=== PATIENT | male | born 1955 | race Caucasian/White ===

== ENCOUNTER → 2024-09-18 07:21 | Outpatient (REF) | payer MEDICARE, OTHER, SELFPAY ==
[2024-09-18 09:31] LABS: Hematocrit 44.3 % (39.0-52.0); Hemoglobin 15.3 g/dL (13.0-18.0); Mean Corp Hgb Conc. 34.5 g/dL (33.0-37.0); Mean Corpuscular Volume 88.8 fL (80.0-94.0); Nucleated Red Blood Cells % 0 % (-); Platelet Count 320 10^3/uL (130-400); Red Cell Dist. Width 13.6 % (11.5-14.5)
[2024-09-21 02:14] LABS: Box Elder/Maple Tree <0.10 kU/L (<=0.34); Cat Epithelium/Dander <0.10 kU/L (<=0.34); Common/Short Ragweed <0.10 kU/L (<=0.34); Dermatophagoides pteronyssinus <0.10 kU/L (<=0.34); Hormodendrum <0.10 kU/L (<=0.34); Mountain Cedar Tree <0.10 kU/L (<=0.34); Mouse Epithelium <0.10 kU/L (<=0.34); Mugwort Weed <0.10 kU/L (<=0.34); Sheep Sorrel Weed <0.10 kU/L (<=0.34); Sycamore Tree <0.10 kU/L (<=0.34); White Ash Tree <0.10 kU/L (<=0.34); White Mulberry Tree <0.10 kU/L (<=0.34)
== END ==
LOC: HWRAD 07:21
PROVIDERS: ATTENDING PHYSICIAN Internal Medicine; FAMILY PHYSICIAN Internal Medicine
DX: R05.3 Chronic cough (principal); J45.30 Mild persistent asthma, uncomplicated
CPT/HCPCS: 36415; 71046; 82785; 85025; 86003

== ENCOUNTER 2024-11-13 19:13 | Emergency (ER) | payer MEDICARE, OTHER, SELFPAY ==
[2024-11-13 19:24] VITALS: BP 143/86
[2024-11-13 20:00] LABS: Hematocrit 43.9 % (39.0-52.0); Hemoglobin 15.4 g/dL (13.0-18.0); Mean Corp Hgb Conc. 35.1 g/dL (33.0-37.0); Mean Corpuscular Volume 88.7 fL (80.0-94.0); Nucleated Red Blood Cells % 0 % (-); Platelet Count 323 10^3/uL (130-400); Red Cell Dist. Width 13.5 % (11.5-14.5)
[2024-11-13 20:24] LABS: ALT (SGPT) 35 U/L (0-50); AST (SGOT) 30 U/L (17-59); Albumin 4.7 g/dl (3.5-5.0); Alkaline Phosphatase 65 U/L (38-126); Blood Urea Nitrogen 19 mg/dl (9-20); Calcium 9.3 mg/dl (8.4-10.2); Carbon Dioxide 23 mmol/L (22-30); Chloride 104 mmol/L (98-107); Glucose 106 mg/dl (70-99); Potassium 4.4 mmol/L (3.5-5.1); Sodium 136 mmol/L (135-145); Total Protein 7.4 g/dl (6.3-8.2); eGFR > 60.00
[2024-11-13 20:28] LABS: Troponin I < 0.012 ng/ml
[2024-11-13 22:56] VITALS: BMI 29.2
[2024-11-13 23:01] VITALS: BP 131/81
[2024-11-13 23:50] LABS: Troponin I < 0.012 ng/ml
[2024-11-14] VITALS: BP 115/71
--- NOTE | 2024-11-14 00:08 | ED.GENMED ---
History of Present Illness
<Laura Thomas MD, Resident - Last Filed: 11/14/24 01:46>
General
Chief Complaint: Chest Pain
Source: patient
Time Seen by Provider: 11/13/24 23:35
History of Present Illness
History of Present Illness:
Mr. Cortez is a 69-year-old male with hyperlipidemia, GERD, asthma, history of BCC, and anxiety who presents to the ED after an episode of lightheadedness, 'tingly' sensation over the body, and dull left-sided chest pain radiating to the left
shoulder that occurred around 5:30 PM today while eating dinner. He states that he was having intermittent left-sided pain throughout the day, however he ignored it. During dinnertime the combination of feeling lightheaded, cold, having a tingling
sensation over his body (which he previously had before he fainted), and chest pain radiating to the shoulder concerned him. He says since being here he feels a lot better although he is still having intermittent left-sided chest pain. He denies
any positional effect, changes with a deep breath, nausea, sweats, fevers, fainting, or any shortness of breath. He does endorse a chronic cough secondary to his allergies and reports that Claritin helps him with this. He states he has a beer
about every month, has not smoked since he was a teenager, and does not use any-drugs not prescribed to him. His most recent medication change was Singulair which was added last week.
Past History
<Laura Thomas MD, Resident - Last Filed: 11/14/24 01:46>
Past History
ED Past Medical History: GERD and Hypercholesterolemia
ED Past Surgical History: None
Social History
Tobacco: Former smoker
Alcohol: Occasional
Drug: None
Personal:
Living: with family
Employment: Employed
Review of Systems
<Laura Thomas MD, Resident - Last Filed: 11/14/24 01:46>
Review of Systems
Allergies reviewed?: Yes
All Other Systems: ROS reviewed and negative except as documented in HPI and ROS
Phy Exam
<Laura Thomas MD, Resident - Last Filed: 11/14/24 01:46>
General Physical Exam
General Presentation: well appearing and no apparent distress
General Skin: warm and dry
ENT Exam
ENT Exam: EOMI
Cardiovascular Exam
Cardiovascular Exam: regular rate/rhythm, no edema, no gallop and no JVD
Pulmonary Exam
Pulmonary Exam: lungs clear and no respiratory distress
Gastrointestinal Exam
Gastrointestinal Exam: non tender, soft and non distended
Skin Exam
Skin Exam: normal color
Scores
<Laura Thomas MD, Resident - Last Filed: 11/14/24 01:46>
Heart Score for Chest Pain Patients
Heart Score for Chest Pain Patients: 3
Heart Score Risk: 2.5% MACE over next 6 weeks
<Saritha Thrasher, DO - Last Filed: 11/14/24 00:44>
Heart Score for Chest Pain Patients
STEMI patient?: No
History: Slightly or Non-Suspicious
ECG: Normal
Age: >/= 65 years
Risk Factors: 1 or 2 Risk Factors
Troponin: </= Normal Limit
Heart Score for Chest Pain Patients: 3
Heart Score Risk: 2.5% MACE over next 6 weeks
Course
<Laura Thomas MD, Resident - Last Filed: 11/14/24 01:46>
Orders/Labs/Results
Orders:
Orders
11/13/24 19:15
Electrocardiogram (*1) Urgent
Reason for Study: Chest Pain
EKG- Treatment ONCE
11/13/24 19:35
Complete Blood Count/With Diff Urgent
Comprehensive Metabolic Panel Urgent
Troponin I Urgent
11/13/24 22:54
Electrocardiogram (*1) Urgent
Reason for Study: Chest Pain
EKG- Treatment ONCE
11/13/24 23:16
Troponin I Urgent
Abnormal Lab Results
11/13/24
19:35
MCH 31.1 H pg
(27.0-31.0)
Absolute Monos (auto) 0.7 H 10^3/uL
(0.1-0.6)
Glucose 106 H mg/dl
(70-99)
11/13/24 19:35
11/13/24 19:35
Vital Signs
Initial and Last Documented VS:
Initial Vital Signs
Temp Pulse Resp BP Pulse Ox
97.9 F 90 16 143/86 94
11/13/24 19:24 11/13/24 19:24 11/13/24 19:24 11/13/24 19:24 11/13/24 19:24
Last Documented Vital Signs
Temp Pulse Resp BP Pulse Ox
98.2 F 69 16 115/71 95
11/14/24 01:15 11/14/24 01:15 11/14/24 01:15 11/14/24 01:15 11/14/24 01:15
<Saritha Thrasher, DO - Last Filed: 11/14/24 00:44>
Orders/Labs/Results
Orders:
Orders
11/13/24 19:15
Electrocardiogram (*1) Urgent
Reason for Study: Chest Pain
EKG- Treatment ONCE
11/13/24 19:35
Complete Blood Count/With Diff Urgent
Comprehensive Metabolic Panel Urgent
Troponin I Urgent
11/13/24 22:54
Electrocardiogram (*1) Urgent
Reason for Study: Chest Pain
EKG- Treatment ONCE
11/13/24 23:16
Troponin I Urgent
Abnormal Lab Results
11/13/24
19:35
MCH 31.1 H pg
(27.0-31.0)
Absolute Monos (auto) 0.7 H 10^3/uL
(0.1-0.6)
Glucose 106 H mg/dl
(70-99)
11/13/24 19:35
11/13/24 19:35
Vital Signs
Initial and Last Documented VS:
Initial Vital Signs
Temp Pulse Resp BP Pulse Ox
97.9 F 90 16 143/86 94
11/13/24 19:24 11/13/24 19:24 11/13/24 19:24 11/13/24 19:24 11/13/24 19:24
Last Documented Vital Signs
Temp Pulse Resp BP Pulse Ox
98.2 F 69 16 115/71 95
11/14/24 01:15 11/14/24 01:15 11/14/24 01:15 11/14/24 01:15 11/14/24 01:15
<Laura Thomas MD, Resident - Last Filed: 11/14/24 01:46>
MDM/Problems Addressed
MDM/Problems Addressed:
Mr. Cortez is a 69-year-old male with hyperlipidemia, GERD, asthma, history of BCC, and anxiety who presents to the ED after an episode of lightheadedness, 'tingly' sensation over the body, and dull left-sided chest pain radiating to the left
shoulder that occurred around 5:30 PM today while eating dinner.
#Chest pain
#Lightheadedness
Most of his symptoms, apart from intermittent left-sided chest pain, have subsided in the ED. Most likely etiology is combination of stress and GERD. This has happened to him 1 previous time due to stress and caffeine.
- EKG normal sinus rhythm, troponin x 2 WNL
- CBC and CMP unremarkable
He was deemed stable for discharge with instructions to increase omeprazole to 40 mg daily over the next 2 weeks.
<Laura Thomas MD, Resident - Last Filed: 11/14/24 01:46>
*Pulse Oximetry
SaO2: 94
Oxygen Mode of Delivery: Room air
<Saritha Thrasher, DO - Last Filed: 11/14/24 00:44>
*Pulse Oximetry
Patient hypoxic: no
*EKG
Interpreted by ED Provider?: Yes
Interpretation: normal
Comparison EKG: no comparison EKG present
Rate: normal
Rhythm: sinus
[place]: normal axis
Interval: normal interval
QRS Pattern: normal QRS
Ischemia: no ischemia
*Securities Analyst Interpretation
Rate: normal
Interpretation: normal
Rhythm: sinus
*Critical Care Note
Total Time (30-74mins, 75-104mins- exclusive of procedures): Not Applicable
ED Attending Note
<Laura Thomas MD, Resident - Last Filed: 11/14/24 01:46>
-
Portions of this chart may have been created with voice recognition software.� Occasional wrong word or��sound alike� substitutions may have occurred due to the inherent limitations of voice recognition software.
<Saritha Thrasher, DO - Last Filed: 11/14/24 00:44>
ED Attending Note
Patient seen and examined by attending physician: Yes
I performed the substantive portion of visit, reviewed & personally made and approve the management plan that is documented in note by myself or JOYCELYN.: Yes
ED Attending Note:
This is a 69-year-old gentleman with history of asthma, hyperlipidemia, GERD, obstructive sleep apnea, depression. He presents with complaints of left lateral lower chest discomfort that radiates to his left shoulder that began around 5:30 PM
tonight shortly after dinner. He admits to mild dizziness but no palpitations, no neck nor back pain, no nausea or vomiting. He does admit to moderate increased stress recently and has had similar chest discomfort sporadically in the past and
underwent unremarkable stress test a number of years ago for similar chest pain. At that time chest pain was thought to be related to stress and increased caffeine use.
He has history of asthma, seasonal allergies with somewhat chronic cough. 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 He notes somewhat chronic pharyngeal irritation/tickle which has markedly improved along with improvement in cough with initiation
of Singulair and Claritin more recently. He is also maintained on LABA/ICS.
He has not had a fever and or chills. No leg pain or swelling. No palpitations.
He is a non-smoker. No recent travel. No history of thromboembolism nor risk factors for such.
69-year-old gentleman appears his stated age, bright and alert, pleasant, appears in no acute distress. is accompanying.
Heart is regular rate and rhythm. No chest wall tenderness.
Lungs are clear to auscultation. No respiratory distress.
Abdomen is rotund, soft, nondistended, nontender. Normoactive bowel sounds.
Extremities without clubbing or cyanosis no edema. Peripheral pulses are full and equal. Nontender.
Concern for ACS, GERD, musculoskeletal pain, gastritis, pneumonia. As above no history of thromboembolism nor risk factors for such. Dissection is also unlikely.
EKG is unremarkable, no acute ST-T wave abnormalities.
Labs are unremarkable including negative troponin x 2.
Lungs are clear to auscultation. No cough appreciated. Chest discomfort is not pleuritic in nature. At this point no indication for chest x-ray.
I suspect acute gastritis/perhaps exacerbation of GERD as cause for discomfort.
Recommend he increase omeprazole from 20 to 40 mg daily at least over the next 2 weeks.
Prompt follow-up with PCP and patient will be referred to our chest pain hotline as well.
Strict return precautions discussed.
Discharge Plan
Departure
Patient Disposition: Home (Routine Discharge)
Date of Disposition: 11/14/24
Time of Disposition: 00:32
Patient with high blood pressure during this ER visit?: No
Condition: Good
Discharge Problem:
Nonspecific chest pain
Instructions: Acid Reflux and GERD in Adults (DC), Chest pain (DC), Chest Pain DCA Follow Up
Prescriptions:
No Action
doxycycline hyclate 100 mg capsule
100 mg PO BID Qty: 20 0RF
Referrals:
William Sierra I., DO [Family Provider, Internal Medicine] - Call in 1-3 days for appt
Activity Restrictions/Additional Instructions:
Increase omeprazole to 40 mg over the next 2 weeks.
Follow-up with your PCP within 1 to 2 weeks.
Interventions
Interventions:
*Risk Screen - Suicide Last Done: 11/13/24 19:24
*General Assessment Last Done: 11/13/24 22:56
*Neglect/Abuse Screening Last Done: 11/13/24 22:56
*ED- Fall Risk Assessment Last Done: 11/13/24 22:56
*ED COVID-19 Vaccine History Last Done: 11/13/24 22:56
*Nursing Disposition Last Done: 11/14/24 01:15
ED- Cardiac Assessment Last Done: 11/13/24 23:20
Discharge Date and Time
Discharge Date/Time: 11/14/24 01:21
Print Language: SLOVENIAN
[2024-11-14 01:15] VITALS: BP 115/71
== END 2024-11-14 01:21 | disposition home or self-care (01) ==
LOC: EMR 19:13
PROVIDERS: Emergency Medicine; Physician Assistant; EMERGENCY PHYSICIAN Emergency Medicine; FAMILY PHYSICIAN Internal Medicine
DX: R07.89 Other chest pain (principal); E78.00 Pure hypercholesterolemia, unspecified; G47.33 Obstructive sleep apnea (adult) (pediatric); K21.9 Gastro-esophageal reflux disease without esophagitis; F41.9 Anxiety disorder, unspecified; J45.909 Unspecified asthma, uncomplicated; Z79.899 Other long term (current) drug therapy; Z85.828 Personal history of other malignant neoplasm of skin
CPT/HCPCS: 99283; 80053; 84484; 85025; 93005